=== PATIENT | female | born 1970 | race Caucasian/White ===

== ENCOUNTER 2016-09-12 00:25 | Emergency (ER) | payer OTHER ==
[2016-09-12] MEDS ORDERED: SODIUM CHLORIDE 0.9% 1,000 ML IV STA ×2 (01:07→02:15)
[2016-09-12] MEDS ORDERED: METOCLOPRAMIDE 5 MG/ML 2 ML VIAL IVP STA (01:07)
[2016-09-12] MEDS ORDERED: DICYCLOMINE 10 MG/ML 2 ML AMP IM STA (01:07)
--- NOTE | 2016-09-12 01:39 | ED ---
Nausea/Vomiting/Diarrhea HPI - General Chief complaint: Nausea/Vomiting/Diarrhea Stated complaint: nausea,vomiting Time Seen by Provider: 09/12/16 00:49 Source: patient, RN notes reviewed Mode of arrival: ambulatory - History of Present Illness Initial comments: 45 yo female presents to the ER with cc of nausea vomiting. Patient has had this since her procedure last Thursday. Patient states she is unable to keep anything down she just keeps throwing up. Patient states that she has any abdominal pain. Patient states she has generalized burning from the vomiting. Patient states went to Dr. farley she was given nausea medicine those do not help so she is here now. Patient states she just wants to feel better.Patient denies any recent fever, chills, shortness of breath, chest pain, back pain, abdominal pain, numbness or tingling, dysuria or hematuria, constipation or diarrhea, headaches or visual changes, or any other current symptoms. - Related Data Home Medications Medication Instructions Recorded Confirmed Ondansetron Odt [Zofran Odt] 4 mg PO Q8HR PRN 09/12/16 09/12/16 Prochlorperazine [Compazine] 5 mg PO Q4H 09/12/16 09/12/16 Previous Rx's Medication Instructions Recorded Ondansetron Odt [Zofran ODT] 4 mg PO Q8HR PRN #20 tab 09/12/16 Allergies Allergy/AdvReac Type Severity Reaction Status Date / Time codeine Allergy Nausea & Verified 09/12/16 00:38 Vomiting Review of Systems ROS Statement: Those systems with pertinent positive or pertinent negative responses have been documented in the HPI. ROS Other: All systems not noted in ROS Statement are negative. Past Medical History Past Medical History: No Reported History History of Any Multi-Drug Resistant Organisms: None Reported Additional Past Surgical History / Comment(s): carpal tunnel Past Psychological History: No Psychological Hx Reported Smoking Status: Current every day smoker Past Alcohol Use History: None Reported Past Drug Use History: None Reported General Exam - General Exam Comments Initial Comments: General: The patient is awake and alert, in no distress, and does not appear acutely ill. Eye: Pupils are equal, round and reactive to light, extra-ocular movements are intact; there is normal conjunctiva bilaterally. No signs of icterus. Ears, nose, mouth and throat: There are moist mucous membranes and no oral lesions. Neck: The neck is supple, there is no tenderness. Cardiovascular: There is a regular rate and rhythm. No murmur, rub or gallop is appreciated. Respiratory: Lungs are clear to auscultation, respirations are non-labored, breath sounds are equal. No wheezes, stridor, rales, or rhonchi. Gastrointestinal: Soft, non-distended, diffusely sore abdomen without masses or organomegaly noted. There is no rebound or guarding present. No CVA tenderness. Bowel sounds are unremarkable. Back: There is no tenderness to palpation in the midline. There is no obvious deformity. No rashes noted. Musculoskeletal: Normal ROM, no tenderness, There is no pedal edema. There is no calf tenderness or swelling. Sensation intact. Pulses equal bilaterally 2+. Neurological: CN II-XII intact, There are no obvious motor or sensory deficits. Coordination appears grossly intact. Speech is normal. Skin: Skin is warm and dry and no rashes or lesions are noted. Psychiatric: Cooperative, appropriate mood & affect, normal judgment. Course Vital Signs 09/12/16 09/12/16 09/12/16 00:32 01:39 03:26 Temperature 98.2 F 98.6 F 98.7 F Pulse Rate 111 H 98 65 Respiratory 20 16 16 Rate Blood Pressure 130/88 123/80 131/75 O2 Sat by Pulse 100 98 100 Oximetry Medical Decision Making - Medical Decision Making 45-year-old male presents emergency Department chief complaint of nausea and vomiting. At this time patient's lab work and imaging is reviewed. At this time and does not appear in acute process causing the patient's vomiting on CAT scan. Patient does appear to have some dehydration to give HER-2 liters of fluid. Patient's laboratory is reviewed and does appear to be negative. This time we discussed the different possible etiologies for her nausea vomiting. We discussed her temporalis and follow-up. We discussed all the patient's questions. She states she understood. This time she is negative and plantar discharged from outpatient follow-up. All her questions have been answered. - Lab Data Result diagrams: 09/12/16 01:15 09/12/16 01:15 Lab Results 09/12/16 09/12/16 09/12/16 Range/Units 01:15 01:15 03:08 WBC 9.6 (3.8-10.6) k/uL RBC 4.90 (3.80-5.40) m/uL Hgb 13.9 (11.4-16.0) gm/dL Hct 41.9 (34.0-46.0) % MCV 85.5 (80.0-100.0) fL MCH 28.3 (25.0-35.0) pg MCHC 33.1 (31.0-37.0) g/dL RDW 15.1 (11.5-15.5) % Plt Count 326 (150-450) k/uL Neutrophils % 76 % Lymphocytes % 13 % Monocytes % 6 % Eosinophils % 2 % Basophils % 1 % Neutrophils # 7.3 (1.3-7.7) k/uL Lymphocytes # 1.3 (1.0-4.8) k/uL Monocytes # 0.6 (0-1.0) k/uL Eosinophils # 0.2 (0-0.7) k/uL Basophils # 0.1 (0-0.2) k/uL Sodium 141 (137-145) mmol/L Potassium 4.1 (3.5-5.1) mmol/L Chloride 105 (98-107) mmol/L Carbon Dioxide 21 L (22-30) mmol/L Anion Gap 15 mmol/L BUN 22 H (7-17) mg/dL Creatinine 0.80 (0.52-1.04) mg/dL Est GFR (MDRD) Af Amer >60 (>60 ml/min/1.73 sqM) Est GFR (MDRD) Non-Af >60 (>60 ml/min/1.73 sqM) Glucose 121 H (74-99) mg/dL Calcium 11.3 H (8.4-10.2) mg/dL Total Bilirubin 0.5 (0.2-1.3) mg/dL AST 19 (14-36) U/L ALT 38 (9-52) U/L Alkaline Phosphatase 110 (38-126) U/L Total Protein 8.1 (6.3-8.2) g/dL Albumin 5.1 H (3.5-5.0) g/dL Amylase 50 (30-110) U/L Lipase 31 (23-300) U/L Urine Color Yellow Urine Appearance Clear (Clear) Urine pH 6.5 (5.0-8.0) Ur Specific Molino >1.050 H (1.001-1.035) Urine Protein 1+ H (Negative) Urine Glucose (UA) Negative (Negative) Urine Ketones 1+ H (Negative) Urine Blood Negative (Negative) Urine Nitrate Negative (Negative) Urine Bilirubin Negative (Negative) Urine Urobilinogen <2.0 (<2.0) mg/dL Ur Leukocyte Esterase Negative (Negative) Urine RBC 2 (0-5) /hpf Urine WBC <1 (0-5) /hpf Ur Squamous Epith Cells 3 (0-4) /hpf Urine Mucus Few H (None) /hpf Disposition Clinical Impression: Dehydration, Nausea and vomiting Disposition: HOME SELF-CARE Condition: Stable Instructions: Acute Nausea and Vomiting (ED) Additional Instructions: Please use medication as discussed. Please follow up with family doctor if symptoms have not improved over the next two days. Please return to the emergency room if your symptoms increase or worsen or for any other concerns. Prescriptions: Ondansetron Odt [Zofran ODT] 4 mg PO Q8HR PRN #20 tab PRN Reason: Nausea Referrals: Chirag Jose MD [Primary Care Provider] - 1-2 days Time of Disposition: 03:30
[2016-09-12 01:40] VITALS: RESP 16
[2016-09-12 01:41] LABS: Basophils # (A) 0.1 k/uL (0-0.2); Basophils % (A) 1 %; CH 28.2; Eosinophils # (A) 0.2 k/uL (0-0.7); Eosinophils % (A) 2 %; HCT 41.9 % (34.0-46.0); HDW 2.49; HGB 13.9 gm/dL (11.4-16.0); Luc # (Auto) 0.16; Luc % (Auto) 2; Lymphocytes # (A) 1.3 k/uL (1.0-4.8); Lymphocytes % (A) 13 %; MCH 28.3 pg (25.0-35.0); MCHC 33.1 g/dL (31.0-37.0); MCV 85.5 fL (80.0-100.0); Mean Platelet Volume 7.2; Monocytes # (A) 0.6 k/uL (0-1.0); Monocytes % (A) 6 %; Neutrophils # (A) 7.3 k/uL (1.3-7.7); Neutrophils % (A) 76 %; RDW 15.1 % (11.5-15.5); WBC 9.6 k/uL (3.8-10.6); WBC (Perox) 10.33
[2016-09-12 01:56] LABS: ALT 38 U/L (9-52); AST 19 U/L (14-36); Alkaline Phosphatase 110 U/L (38-126); Amylase 50 U/L (30-110); Anion Gap 15 mmol/L; Blood Urea Nitrogen 22 mg/dL (7-17); Calcium 11.3 mg/dL (8.4-10.2); Carbon Dioxide 21 mmol/L (22-30); Chloride 105 mmol/L (98-107); Glucose 121 mg/dL (74-99); Non-African American GFR(MDRD) >60 (>60 ml/min/1.73 sqM); Potassium 4.1 mmol/L (3.5-5.1); Sodium 141 mmol/L (137-145); Total Bilirubin 0.5 mg/dL (0.2-1.3); Total Protein 8.1 g/dL (6.3-8.2)
[2016-09-12] MEDS ORDERED: RX INFO: IV CONTRAST WAS GIVEN 1 EACH MISC MISCELLANE PRN (01:58)
--- NOTE | 2016-09-12 02:53 | CT ---
EXAMINATION TYPE: CT abdomen pelvis w con DATE OF EXAM: 09/12/2016 2:32 AM COMPARISON: NONE HISTORY: vomiting for 1 week abdominal pain history of appendectomy. CT DLP: 452.50 mGycm Automated exposure control for dose reduction was used. TECHNIQUE: Helical acquisition of images was performed from the lung bases through the pelvis. CONTRAST: Performed without Oral Contrast and with IV Contrast, patient injected with 100 mL of Omnipaque 300. FINDINGS: LUNG BASES: No significant abnormality is appreciated. LIVER/GB: No significant abnormality is appreciated. PANCREAS: Pancreas showed no significant surrounding inflammation. SPLEEN: No significant abnormality is seen. ADRENALS: No significant abnormality is seen. KIDNEYS: Multiple benign-appearing cystic lesions are noted in both kidneys without significant contr ast enhancement with one of the largest cysts measuring 1.7 cm in the axial image 26. The largest lef t renal cyst measures 1.7 cm in the axial image 23. REPRODUCTIVE ORGANS: Uterus appears grossly unremarkable. Prominent cystic changes are noted in the r ight ovary and mild cystic changes are noted in the left ovary. Largest cyst of right ovary measures approximately 2.7 cm in the axial image 66. No significant free fluid collections are noted in the ad nexal areas and pelvis. URINARY BLADDER: No significant abnormality is seen. PELVIC ADENOPATHY: None visualized. OSSEOUS STRUCTURES: No significant abnormality is seen. BOWEL: Appendix is probably surgically absent. Moderate colonic diverticulosis is noted especially involving descending and sigmoid colon without de finite evidence of acute diverticulitis at present. Stomach is not well distended. Small bowel loops showed mild fluid distention without significant bow el obstruction. ABDOMINAL WALL: Small fat-containing umbilical hernia is noted. IMPRESSION: 1. NO SIGNIFICANT ACUTE ABNORMALITY IS NOTED IN THE ABDOMEN AND PELVIS. 2. COLONIC DIVERTICULOSIS WITHOUT SIGNIFICANT ACUTE DIVERTICULITIS CHANGES AT PRESENT. 3. APPENDIX IS PROBABLY SURGICALLY ABSENT. 4. BENIGN-APPEARING CYSTIC CHANGES IN BOTH KIDNEYS. 5. VISUALIZED PANCREAS SHOWED NO SIGNIFICANT INFLAMMATION. 6. CYSTIC CHANGES IN BOTH OVARIES. A CLINICAL CORRELATION AND FOLLOW-UP IS RECOMMENDED.
[2016-09-12] MEDS ORDERED: ONDANSETRON 4 MG/2 ML VIAL IVP STA (03:08)
[2016-09-12 03:27] LABS: Appearance,Urine Clear (Clear); Bilirubin,Urine Negative (Negative); Glucose,Urine (UA) Negative (Negative); Ketones,Urine 1+ (Negative); Leukocyte Esterase,Urine Negative (Negative); Mucus,Urine Few /hpf; Nitrite,Urine Negative (Negative); PH, Urine 6.5 (5.0-8.0); Particle Count 3200; Protein,Urine 1+ (Negative); RBC,Urine 2 /hpf (0-5); Squamous Epithelial Cell,Urine 3 /hpf (0-4); UA Billing (MACRO vs. MICRO) MICRO; Urobilinogen,Urine <2.0 mg/dL (<2.0); WBC,Urine <1 /hpf (0-5)
[2016-09-12 03:28] VITALS: BP 131/75; PULSE 65; TEMP 98.7
[2016-09-12 03:29] LABS: Specific Gravity,Urine >1.050 (1.001-1.035)
== END 2016-09-12 04:00 | disposition home or self-care (01) ==
LOC: EC 00:25
DX: E86.0 Dehydration (principal); R11.2 Nausea with vomiting, unspecified; K57.30 Diverticulosis of large intestine without perforation or abscess without bleeding; F17.200 Nicotine dependence, unspecified, uncomplicated; Z88.5 Allergy status to narcotic agent; Z79.899 Other long term (current) drug therapy
CPT/HCPCS: 99284; 96372; 96374; 96375; 96361 ×2; 36415; 80053; 82150; 83690; 85025; 81001; 87040; 87086; 74177; J0500; J2765; J2405; Q9967

== ENCOUNTER 2016-09-14 11:15 | Observation (INO) | payer OTHER ==
[2016-09-14 11:41] VITALS: RESP 18
[2016-09-14] MEDS ORDERED: ONDANSETRON 4 MG/2 ML VIAL IVP STA ×2 (11:55→14:11)
[2016-09-14] MEDS ORDERED: SODIUM CHLORIDE 0.9% 1,000 ML IV STA (11:55)
[2016-09-14] MEDS ORDERED: SODIUM CHLORIDE 0.9% 500 ML IV STA (11:55)
--- NOTE | 2016-09-14 12:15 | ED ---
General Adult HPI - General Chief complaint: Abdominal Pain Stated complaint: VOMITING Time Seen by Provider: 09/14/16 11:42 Source: patient, RN notes reviewed, old records reviewed Mode of arrival: ambulatory Limitations: no limitations - History of Present Illness Initial comments: This is a 45-year-old female to the ER today complaining of abdominal pain, nausea, vomiting. They did recently have surgery for carpal tunnel, was done as outpatient surgery under sedation. Patient states since then she has not been feeling well. No travel history no sick contacts. No fevers. No new medication, patient has recently discontinued Neurontin. Patient with continued nausea vomiting weakness. She was here in the ER 3 days ago for similar symptoms, she states she has feel better when she went home but symptoms immediately returned later that night and has progressively worsened again. Decreased bowel movements, no diarrhea, no blood in her stool or vomit. - Related Data Home Medications Medication Instructions Recorded Confirmed No Known Home Medications [No 09/14/16 09/14/16 Known Home Medications] Allergies Allergy/AdvReac Type Severity Reaction Status Date / Time codeine Allergy Nausea & Verified 09/14/16 12:15 Vomiting Review of Systems ROS Statement: Those systems with pertinent positive or pertinent negative responses have been documented in the HPI. ROS Other: All systems not noted in ROS Statement are negative. Past Medical History Past Medical History: No Reported History Additional Past Medical History / Comment(s): carpal tunnel History of Any Multi-Drug Resistant Organisms: None Reported Additional Past Surgical History / Comment(s): carpal tunnel Past Psychological History: No Psychological Hx Reported Smoking Status: Current every day smoker Past Alcohol Use History: None Reported Past Drug Use History: None Reported General Exam Limitations: no limitations General appearance: alert, in no apparent distress Head exam: Present: atraumatic, normocephalic, normal inspection Eye exam: Present: normal appearance, PERRL, EOMI. Absent: scleral icterus, conjunctival injection, periorbital swelling ENT exam: Present: normal exam, mucous membranes moist Neck exam: Present: normal inspection. Absent: tenderness, meningismus, lymphadenopathy Respiratory exam: Present: normal lung sounds bilaterally. Absent: respiratory distress, wheezes, rales, rhonchi, stridor Cardiovascular Exam: Present: regular rate, normal rhythm, normal heart sounds. Absent: systolic murmur, diastolic murmur, rubs, gallop, clicks GI/Abdominal exam: Present: soft, normal bowel sounds. Absent: distended, tenderness, guarding, rebound, rigid Extremities exam: Present: normal inspection, full ROM, normal capillary refill. Absent: tenderness, pedal edema, joint swelling, calf tenderness Back exam: Present: normal inspection Neurological exam: Present: alert, oriented X3, CN II-XII intact Psychiatric exam: Present: normal affect, normal mood Skin exam: Present: warm, dry, intact, normal color. Absent: rash Course Vital Signs 09/14/16 11:37 Temperature 98.4 F Pulse Rate 86 Respiratory 18 Rate Blood Pressure 145/89 O2 Sat by Pulse 100 Oximetry - Reevaluation(s) Reevaluation #1: 09/14/16 14:12 The patient symptoms are not improving with symptomatic treatment 09/14/16 14:13 Patient is in no specific pain, no chest pain or shortness of breath Medical Decision Making - Medical Decision Making 45 female here with persistent nausea vomiting. Intractable nausea and vomiting. Patient unable to tolerate by mouth at this time. Patient will be admitted for IV resuscitation calories, symptomatic treatment. - Lab Data Result diagrams: 09/14/16 12:30 09/14/16 12:30 Lab Results 09/14/16 09/14/16 09/14/16 Range/Units 12:30 12:30 12:30 WBC 7.9 (3.8-10.6) k/uL RBC 4.68 (3.80-5.40) m/uL Hgb 13.2 (11.4-16.0) gm/dL Hct 41.1 (34.0-46.0) % MCV 87.9 (80.0-100.0) fL MCH 28.2 (25.0-35.0) pg MCHC 32.0 (31.0-37.0) g/dL RDW 15.4 (11.5-15.5) % Plt Count 322 (150-450) k/uL Neutrophils % 68 % Lymphocytes % 20 % Monocytes % 8 % Eosinophils % 2 % Basophils % 1 % Neutrophils # 5.4 (1.3-7.7) k/uL Lymphocytes # 1.6 (1.0-4.8) k/uL Monocytes # 0.6 (0-1.0) k/uL Eosinophils # 0.2 (0-0.7) k/uL Basophils # 0.1 (0-0.2) k/uL Sodium 144 (137-145) mmol/L Potassium 3.7 (3.5-5.1) mmol/L Chloride 106 (98-107) mmol/L Carbon Dioxide 24 (22-30) mmol/L Anion Gap 14 mmol/L BUN 17 (7-17) mg/dL Creatinine 0.80 (0.52-1.04) mg/dL Est GFR (MDRD) Af Amer >60 (>60 ml/min/1.73 sqM) Est GFR (MDRD) Non-Af >60 (>60 ml/min/1.73 sqM) Glucose 101 H (74-99) mg/dL Plasma Lactic Acid Sanjay (0.7-2.0) mmol/L Calcium 11.0 H (8.4-10.2) mg/dL Phosphorus 2.8 (2.5-4.5) mg/dL Magnesium 2.1 (1.6-2.3) mg/dL Total Bilirubin 0.4 (0.2-1.3) mg/dL AST 23 (14-36) U/L ALT 40 (9-52) U/L Alkaline Phosphatase 106 (38-126) U/L Total Creatine Kinase 39 (30-135) U/L CK-MB (CK-2) <0.2 (0.0-2.4) ng/mL CK-MB (CK-2) Rel Index Troponin I <0.012 (0.000-0.034) ng/mL Total Protein 7.8 (6.3-8.2) g/dL Albumin 4.8 (3.5-5.0) g/dL Urine Color Urine Appearance (Clear) Urine pH (5.0-8.0) Ur Specific Stephan (1.001-1.035) Urine Protein (Negative) Urine Glucose (UA) (Negative) Urine Ketones (Negative) Urine Blood (Negative) Urine Nitrate (Negative) Urine Bilirubin (Negative) Urine Urobilinogen (<2.0) mg/dL Ur Leukocyte Esterase (Negative) Urine RBC (0-5) /hpf Urine WBC (0-5) /hpf Ur Squamous Epith Cells (0-4) /hpf Urine Bacteria (None) /hpf Urine Mucus (None) /hpf 09/14/16 09/14/16 Range/Units 12:30 12:35 WBC (3.8-10.6) k/uL RBC (3.80-5.40) m/uL Hgb (11.4-16.0) gm/dL Hct (34.0-46.0) % MCV (80.0-100.0) fL MCH (25.0-35.0) pg MCHC (31.0-37.0) g/dL RDW (11.5-15.5) % Plt Count (150-450) k/uL Neutrophils % % Lymphocytes % % Monocytes % % Eosinophils % % Basophils % % Neutrophils # (1.3-7.7) k/uL Lymphocytes # (1.0-4.8) k/uL Monocytes # (0-1.0) k/uL Eosinophils # (0-0.7) k/uL Basophils # (0-0.2) k/uL Sodium (137-145) mmol/L Potassium (3.5-5.1) mmol/L Chloride (98-107) mmol/L Carbon Dioxide (22-30) mmol/L Anion Gap mmol/L BUN (7-17) mg/dL Creatinine (0.52-1.04) mg/dL Est GFR (MDRD) Af Amer (>60 ml/min/1.73 sqM) Est GFR (MDRD) Non-Af (>60 ml/min/1.73 sqM) Glucose (74-99) mg/dL Plasma Lactic Acid Sanjay 1.0 (0.7-2.0) mmol/L Calcium (8.4-10.2) mg/dL Phosphorus (2.5-4.5) mg/dL Magnesium (1.6-2.3) mg/dL Total Bilirubin (0.2-1.3) mg/dL AST (14-36) U/L ALT (9-52) U/L Alkaline Phosphatase (38-126) U/L Total Creatine Kinase (30-135) U/L CK-MB (CK-2) (0.0-2.4) ng/mL CK-MB (CK-2) Rel Index Troponin I (0.000-0.034) ng/mL Total Protein (6.3-8.2) g/dL Albumin (3.5-5.0) g/dL Urine Color Yellow Urine Appearance Cloudy H (Clear) Urine pH 6.0 (5.0-8.0) Ur Specific Stephan 1.021 (1.001-1.035) Urine Protein 1+ H (Negative) Urine Glucose (UA) Negative (Negative) Urine Ketones 2+ H (Negative) Urine Blood Negative (Negative) Urine Nitrate Negative (Negative) Urine Bilirubin Negative (Negative) Urine Urobilinogen 2.0 (<2.0) mg/dL Ur Leukocyte Esterase Negative (Negative) Urine RBC 2 (0-5) /hpf Urine WBC 5 (0-5) /hpf Ur Squamous Epith Cells 3 (0-4) /hpf Urine Bacteria Rare H (None) /hpf Urine Mucus Many H (None) /hpf Disposition Clinical Impression: Dehydration, Nausea and vomiting, Failure of outpatient treatment, Intractable nausea and vomiting Disposition: ADMITTED IP TO THIS [facility] Condition: Good Referrals: Chirag Jose MD [Primary Care Provider] - 1-2 days
[2016-09-14 12:45] LABS: Basophils # (A) 0.1 k/uL (0-0.2); Basophils % (A) 1 %; CH 28.9; CHCM 32.9; Eosinophils # (A) 0.2 k/uL (0-0.7); Eosinophils % (A) 2 %; HCT 41.1 % (34.0-46.0); HDW 2.45; HGB 13.2 gm/dL (11.4-16.0); Luc % (Auto) 1; Lymphocytes # (A) 1.6 k/uL (1.0-4.8); Lymphocytes % (A) 20 %; MCH 28.2 pg (25.0-35.0); MCV 87.9 fL (80.0-100.0); Mean Platelet Volume 7.7; Monocytes # (A) 0.6 k/uL (0-1.0); Monocytes % (A) 8 %; Neutrophils # (A) 5.4 k/uL (1.3-7.7); Neutrophils % (A) 68 %; RBC 4.68 m/uL (3.80-5.40); RDW 15.4 % (11.5-15.5); WBC 7.9 k/uL (3.8-10.6); WBC (Perox) 8.22
[2016-09-14 12:49] LABS: Appearance,Urine Cloudy (Clear); Bacteria,Urine Rare /hpf; Bilirubin,Urine Negative (Negative); Glucose,Urine (UA) Negative (Negative); Ketones,Urine 2+ (Negative); Leukocyte Esterase,Urine Negative (Negative); Mucus,Urine Many /hpf; Nitrite,Urine Negative (Negative); Particle Count 20536; Protein,Urine 1+ (Negative); RBC,Urine 2 /hpf (0-5); Specific Gravity,Urine 1.021 (1.001-1.035); Squamous Epithelial Cell,Urine 3 /hpf (0-4); UA Billing (MACRO vs. MICRO) MICRO; WBC,Urine 5 /hpf (0-5)
[2016-09-14 12:56] LABS: ALT 40 U/L (9-52); AST 23 U/L (14-36); Alkaline Phosphatase 106 U/L (38-126); Anion Gap 14 mmol/L; Blood Urea Nitrogen 17 mg/dL (7-17); Carbon Dioxide 24 mmol/L (22-30); Chloride 106 mmol/L (98-107); Glucose 101 mg/dL (74-99); Magnesium 2.1 mg/dL (1.6-2.3); Non-African American GFR(MDRD) >60 (>60 ml/min/1.73 sqM); Phosphorous 2.8 mg/dL (2.5-4.5); Potassium 3.7 mmol/L (3.5-5.1); Sodium 144 mmol/L (137-145); Total Bilirubin 0.4 mg/dL (0.2-1.3); Total Protein 7.8 g/dL (6.3-8.2)
[2016-09-14 13:10] LABS: Creatine Kinase 39 U/L (30-135)
[2016-09-14 13:23] LABS: Creatine Kinase MB <0.2 ng/mL (0.0-2.4); Troponin I <0.012 ng/mL (0.000-0.034)
[2016-09-14] MEDS ORDERED: METOCLOPRAMIDE 5 MG/ML 2 ML VIAL IVP STA (13:42)
[2016-09-14] MEDS ORDERED: diphenhydrAMINE 50 MG/ML 1 ML VIAL IVP STA (13:42)
[2016-09-14] MEDS ORDERED: DIAZEPAM 5 MG/ML 2 ML SYRINGE IVP STA (13:42)
[2016-09-14] MEDS ORDERED: PANTOPRAZOLE 40 MG/10 ML VIAL IVP STA (13:42)
[2016-09-14] MEDS ORDERED: MORPHINE SULFATE 4 MG/ML SYRINGE IVP STA (14:11)
[2016-09-14] MEDS ORDERED: DICYCLOMINE 10 MG/ML 2 ML AMP IM STA (14:11)
[2016-09-14] MEDS ORDERED: MORPHINE SULFATE 4 MG/ML SYRINGE IVP PRN (14:14)
[2016-09-14] MEDS ORDERED: diphenhydrAMINE 50 MG/ML 1 ML VIAL IVP PRN (14:14)
[2016-09-14] MEDS ORDERED: ONDANSETRON 4 MG/2 ML VIAL IVP PRN (14:14)
[2016-09-14] MEDS ORDERED: METOCLOPRAMIDE 5 MG/ML 2 ML VIAL IVP PRN (14:14)
[2016-09-14] MEDS ORDERED: DEXTROSE 5%-0.45% NACL 1,000 ML IV ONE (14:14)
[2016-09-14 15:00] VITALS: BP 130/60; PULSE 56; TEMP 98.4
[2016-09-14] MEDS ORDERED: SODIUM CHLORIDE 0.9% 1,000 ML IV SCH (15:15)
[2016-09-14 15:42] VITALS: BMI 25.7
[2016-09-14] MEDS ORDERED: PANTOPRAZOLE 40 MG/10 ML VIAL IVP SCH (21:00)
[2016-09-15] MEDS ORDERED: PANTOPRAZOLE 40 MG/10 ML VIAL IVP SCH (09:00)
--- NOTE | 2016-09-15 10:25 | HP ---
HISTORY AND PHYSICAL/DISCHARGE SUMMARY DATE OF ADMISSION: This is a 45-year-old female who came in with complaints of nausea, vomiting, has been going on for a week, multiple episodes of vomiting. Denied any diarrhea. Was complaining of epigastric abdominal pain, although patient is not having any significant ulcerative abnormalities. All the ( ) with normal limits. Patient's creatinine and BUN are within normal limits and patient denied any recently ill contact. Patient since arrival to observation unit for a couple hours, did not have any nausea. Will try and advance diet. Will start her on ( ) and advance her to sulfate, if she is able to tolerate, will discharge her today with Prilosec and antiviral medications and Zofran on as-needed basis. Patient denied any fever, chills. Patient denied any flu-like symptoms. REVIEW OF SYSTEMS: CONSTITUTIONAL: No fever, no malaise, no fatigue. HEENT: No recent visual problems or hearing problems. Denied any sore throat. CARDIOVASCULAR: No chest pain, orthopnea, PND, no palpitations, no syncope. PULMONARY: No shortness of breath, no cough, no hemoptysis. GASTROINTESTINAL: As described in HPI. NEUROLOGICAL: No headaches, no weakness, no numbness. HEMATOLOGICAL: Denies any bleeding or petechiae. GENITOURINARY: Denies any burning micturition, frequency, or urgency. MUSCULOSKELETAL/RHEUMATOLOGICAL: Denies any joint pain, swelling, or any muscle pain. ENDOCRINE: Denies any polyuria or polydipsia. The rest of the 14 point review of systems is negative. HOME MEDICATIONS: None. ALLERGIES: Allergic to CODEINE. PAST MEDICAL HISTORY: Carpal tunnel surgery. Patient had a recent carpal tunnel surgery. Since then she is having ( ). Patient is not on an antibiotics recently. SOCIAL HISTORY: Patient continues to smoke. Denied any alcohol abuse or any drug abuse. FAMILY HISTORY: Denied any family history of diabetes mellitus. PHYSICAL EXAMINATION: Temperature 98.4, pulse of 86, respiratory rate of 18, blood pressure is 145/89, saturating at 100% on room air. GENERAL: The patient is alert and oriented x3, not in any acute distress. Well developed, well nourished. HEENT: Pupils are round and equally reacting to light. EOMI. No scleral icterus. No conjunctival pallor. Normocephalic, atraumatic. No pharyngeal erythema. No thyromegaly. CARDIOVASCULAR: S1 and S2 present. No murmurs, rubs, or gallops. PULMONARY: Chest is clear to auscultation, no wheezing or crackles. ABDOMEN: Soft, nontender, nondistended, normoactive bowel sounds. No palpable organomegaly. MUSCULOSKELETAL: No joint swelling or deformity. EXTREMITIES: No cyanosis, clubbing, or pedal edema. NEUROLOGICAL: Gross neurological examination did not reveal any focal deficits. SKIN: No rashes. Laboratory data as mentioned above. CBC is within normal limits. Troponins, UA are all within normal limits. ASSESSMENT AND PLAN: 1. Nausea and vomiting ( ). Since she was admitted, will watch her and ( ). If she is not having significant nausea and vomiting, patient will be discharged and further management as mentioned in the interval history. Patient probably has gastritis or gastroenteritis. 2. ( ) was provided. 3. Patient probably has gastritis for which patient will start on Protonix. I will discharge her on Prilosec, opiates will be discontinued as patient does not have any significant pain at this time.
== END 2016-09-14 19:23 | disposition home or self-care (01) ==
LOC: EC 11:15 → 3OBS 14:14
PROVIDERS: ADMIT Hospitalist; ATTEND Hospitalist
DX: E86.0 Dehydration (principal); R11.2 Nausea with vomiting, unspecified; R10.9 Unspecified abdominal pain; F17.200 Nicotine dependence, unspecified, uncomplicated; Z88.5 Allergy status to narcotic agent
CPT/HCPCS: 99284; 96374; 96375 ×4; 96372; 96361 ×2; 36415; 80053; 82550; 82553; 83605; 83735; 84100; 84484; 85025; 81001; 87086; G0378; J1200; J0500; J2765; J3360; J2405; C9113

== ENCOUNTER → 2016-09-30 | Outpatient (CLI) | payer OTHER ==
--- NOTE | 2016-09-30 09:24 | NM ---
Nuclear medicine hepatobiliary scan. HISTORY: Pain. COMPARISON: 10/10/2014 The patient received 8 ounces of oral ensure plus and 5.4 mCi of Technetium 99m Choletec. There is normal hepatic extraction. The gallbladder is seen by 20 minutes. There is biliary to wanda l clearance by 30 minutes. Ejection fraction is 66%. IMPRESSION: 1. Normal hepatobiliary exam
== END | disposition home or self-care (01) ==
LOC: RADNMMAIN 07:02
PROVIDERS: ATTEND Family Medicine
DX: R10.9 Unspecified abdominal pain (principal)
CPT/HCPCS: 78226; A9537

== ENCOUNTER → 2018-01-19 | Outpatient (CLI) | payer BC ==
--- NOTE | 2018-01-19 15:06 | MM ---
Reason for exam: additional evaluation requested from prior study. Last mammogram was performed 1 year and 9 months ago. History: Took hormonal contraceptives for 5 years. Physical Findings: Nurse did not find any significant physical abnormalities on exam. MG 3D Diag Mammo W/Cad NAVARRO Bilateral CC and MLO view(s) were taken. Prior study comparison: April 21, 2016, right breast MG work up mamm w CAD RT. April 10, 2016, bilateral MG screening mammo w CAD. The breast tissue is heterogeneously dense. This may lower the sensitivity of mammography. No significant new findings when compared with previous films. These results were verbally communicated with the patient and result sheet given to the patient on 01/19/18. ASSESSMENT: Negative, BI-RAD 1 RECOMMENDATION: Routine screening mammogram of both breasts in 1 year.
== END | disposition home or self-care (01) ==
LOC: RADMAMWWP 14:21
PROVIDERS: ATTEND Family Medicine
DX: R92.8 Other abnormal and inconclusive findings on diagnostic imaging of breast (principal)
CPT/HCPCS: 77062; 77066

== ENCOUNTER → 2018-01-21 | Outpatient (CLI) | payer BC ==
[2018-01-21 13:03] LABS: ALT 30 U/L (9-52); AST 17 U/L (14-36); Albumin 4.1 g/dL (3.5-5.0); Alkaline Phosphatase 75 U/L (38-126); Anion Gap 11 mmol/L; Blood Urea Nitrogen 14 mg/dL (7-17); Calcium 9.9 mg/dL (8.4-10.2); Carbon Dioxide 24 mmol/L (22-30); Chloride 108 mmol/L (98-107); Glucose 94 mg/dL (74-99); Potassium 4.5 mmol/L (3.5-5.1); Sodium 143 mmol/L (137-145); Total Bilirubin 0.1 mg/dL (0.2-1.3); Total Protein 6.2 g/dL (6.3-8.2)
[2018-01-21 13:09] LABS: HCT 37.8 % (34.0-46.0); HGB 12.8 gm/dL (11.4-16.0); MCH 30.1 pg (25.0-35.0); MCHC 33.8 g/dL (31.0-37.0); MCV 89.2 fL (80.0-100.0); Mean Platelet Volume 6.9; Platelet Count 280 k/uL (150-450); RBC 4.23 m/uL (3.80-5.40); RDW 13.4 % (11.5-15.5); WBC 7.2 k/uL (3.8-10.6)
[2018-01-21 13:20] LABS: Partial Thromboplastin Time 24.4 sec (22.0-30.0); Prothrombin Time 9.5 sec (9.0-12.0)
== END ==
LOC: LABWHC1 12:01
PROVIDERS: ATTEND Plastic Surgery
DX: D64.9 Anemia, unspecified (principal); D68.9 Coagulation defect, unspecified; E87.8 Other disorders of electrolyte and fluid balance, not elsewhere classified
CPT/HCPCS: 36415; 80053; 85027; 85610; 85730

== ENCOUNTER → 2018-10-29 | Outpatient (CLI) | payer OTHER, BC ==
--- NOTE | 2018-10-29 11:44 | US ---
EXAMINATION TYPE: US venous doppler duplex LE RT DATE OF EXAM: 10/29/2018 11:34 AM COMPARISON: NONE CLINICAL HISTORY: R22.42 Swelling of lower limb. Pain and edema right leg SIDE PERFORMED: right TECHNIQUE: The lower extremity deep venous system is examined utilizing real time linear array sonog jose with graded compression, doppler sonography and color-flow sonography. VESSELS IMAGED: External Iliac Vein (EIV) Common Femoral Vein Deep Femoral Vein Greater Saphenous Vein * Femoral Vein Popliteal Vein Small Saphenous Vein * Proximal Calf Veins (* superficial vessels) Right Leg: No evidence of DVT IMPRESSION: 1. Right lower extremity ultrasound negative for deep venous thrombosis.
== END | disposition home or self-care (01) ==
LOC: RADUSWWP 10:56
PROVIDERS: ATTEND Family Medicine
DX: R22.42 Localized swelling, mass and lump, left lower limb (principal)

== ENCOUNTER → 2019-03-02 | Outpatient (CLI) | payer BC, OTHER ==
--- NOTE | 2019-03-03 11:34 | USB ---
Reason for exam: clinical finding. History: Retro-pectoral silicone gel implants in both breasts, 2018. Took hormonal contraceptives for 5 years. Indicated problem(s): palpable abnormality and lump or thickening in the left breast. Physical Findings: Nurse Summary: 1cm movable nodule at 10 o'clock (nurse dw). US Breast LT Left complete breast ultrasound includes all four quadrants, the retroareolar region and axilla. Finding demonstrates a 0.9 x 0.9 x 0.2cm cystic lesion at 9 o'clock, a 1.1 x 0.7 x 0.3cm cystic lesion at 10 o'clock and a 6 x 4mm hypoechoic intraductal lesion with vascularity at 10 o'clock subareolar region. These results were verbally communicated with the patient and result sheet given to the patient on 03/02/19. ASSESSMENT: Incomplete: need additional imaging evaluation, BI-RAD 0 RECOMMENDATION: Special view mammogram of both breasts.
--- NOTE | 2019-03-03 11:36 | MM ---
Reason for exam: additional evaluation requested from abnormal screening. Last mammogram was performed 1 year and 1 month ago. History: Retro-pectoral silicone gel implants in both breasts, 2018. Took hormonal contraceptives for 5 years. MG 3D Diag Mammo Imp W/Cad NAVARRO Bilateral CC, MLO, and ID view(s) were taken. Prior study comparison: January 19, 2018, bilateral MG 3d diag mammo w/cad NAVARRO. April 21, 2016, right breast MG work up mamm w CAD RT. The breast tissue is extremely dense which could obscure a lesion on mammography. Bilateral nipple bars. Retropectoral silicone implants. No suspicious calcifications are seen. No significant new findings when compared with previous films. These results were verbally communicated with the patient and result sheet given to the patient on 03/02/19. ASSESSMENT: Suspicious, BI-RAD 4 RECOMMENDATION: Ultrasound core biopsy of the left breast. Called Dr. Bright with mammographic findings and has scheduled an appointment for the patient for 03/25/19 at 12:[address] Shirley. Biopsy scheduled for 03/30/19 at 1:00. PRELIMINARY REPORT CALLED AND FAXED TO DR. SHIRLEY ON 03/02/19.
== END | disposition home or self-care (01) ==
LOC: RADUSWWP 15:39
PROVIDERS: ATTEND Internal Medicine
DX: N63.42 Unspecified lump in left breast, subareolar (principal)
CPT/HCPCS: 77062; 77066

== ENCOUNTER → 2022-11-20 | Outpatient (CLI) | payer BC ==
--- NOTE | 2022-11-21 07:06 | US ---
EXAMINATION TYPE: US pelvis complete transvag DATE OF EXAM: 11/20/2022 COMPARISON: Pelvic ultrasound 10/12/2015 CLINICAL HISTORY: N83.209 OVARIAN CYST. TECHNIQUE: Transvaginal (TV) and Transabdominal (TA) . Date of LMP: 1 year prior EXAM MEASUREMENTS: Uterus: 6.6 x 2.7 x 3.6 cm Endometrial Stripe: 0.6 cm Right Ovary: 2.1 x 1.1 x 1.2 cm Left Ovary: 1.9 x 1.6 x 1.7cm 1. Uterus: Anteverted wnl 2. Endometrium: wnl 3. Right Ovary: wnl 4. Left Ovary: 1.1cm cyst 5. Bilateral Adnexa: wnl 6. Posterior cul-de-sac: wnl Unremarkable appearance of the intervertebral uterus. Endometrium is within normal limits. Right ovar y is within normal limits. Left ovarian dominant follicular cyst measuring 1.1 cm. No free fluid iden tified. IMPRESSION: 1. No acute pelvic process. 2. Left ovarian follicular cyst.
== END | disposition home or self-care (01) ==
LOC: RADUSWWP 16:21
PROVIDERS: ATTEND Family Medicine
DX: N83.02 Follicular cyst of left ovary (principal)
CPT/HCPCS: 76830; 76856

== ENCOUNTER → 2023-10-05 | Outpatient (CLI) | payer BC ==
--- NOTE | 2023-10-06 20:43 | MM ---
Reason for Exam: Screening (asymptomatic). Last mammogram was performed 4 year(s) and 7 month(s) ago. Patient History: Menarche at age 12. First Full-Term at age 20. Postmenopausal. Patient used Hormonal Contraceptives for 5 years. 2018, Bilateral Implants. Risk Values: Aretha 5 year model risk: 0.8%. NCI Lifetime model risk: 7.0%. Prior Study Comparison: 04/21/2016 Right Diagnostic Mammogram, [facility]. 01/19/2018 Bilateral Diagnostic Mammogram, [facility]. 03/02/2019 Bilateral Diagnostic Mammogram, [facility]. Tissue Density: The breast tissue is extremely dense which could obscure a lesion on mammography. Findings: Analyzed By CAD. There are bilateral retropectoral silicone implants. Bilateral nipple bar is also noted. Possible small area of underlying nodularity upper outer quadrant right breast for which further evaluation is recommended. Otherwise, no significant change. Overall Assessment: Incomplete: need additional imaging evaluation, BI-RAD 0 Management: Special View Mammogram of the right breast. Diagnostic Breast Ultrasound of the right breast. [facility] will attempt to contact patient to return for supplemental views and ultrasound if indicated. Electronically signed and approved by: Silvestre Roca M.D. Radiologist
== END | disposition home or self-care (01) ==
LOC: RADMAMWWP 15:19
PROVIDERS: ATTEND Family Medicine
DX: Z12.31 Encounter for screening mammogram for malignant neoplasm of breast (principal); Z78.0 Asymptomatic menopausal state; Z98.82 Breast implant status
CPT/HCPCS: 77063; 77067

== ENCOUNTER → 2023-10-08 | Outpatient (CLI) | payer BC ==
--- NOTE | 2023-10-08 14:18 | MM ---
Reason for Exam: Additional evaluation requested from abnormal screening. Last screening mammogram was performed less than 1 month ago. Patient History: Menarche at age 12. First Full-Term at age 20. Postmenopausal. Patient used Hormonal Contraceptives for 5 years. 2018, Bilateral Implants. Risk Values: Aretha 5 year model risk: 0.8%. NCI Lifetime model risk: 7.0%. Prior Study Comparison: 03/02/2019 Left Diagnostic Ultrasound, [facility]. 03/02/2019 Bilateral Diagnostic Mammogram, [facility]. 10/05/2023 Bilateral MG 3D screen mammo imp/cad., [facility]. Tissue Density: Right: The breast tissue is extremely dense which could obscure a lesion on mammography. Findings: Analyzed By CAD. Possible 3 mm nodularity, approximately 10:00 position posterior depth right breast seen on the true lateral view. The questioned area of nodularity does not persist on either 3-D CC or spot 3-D MLO views. Further ultrasound evaluation recommended. Overall Assessment: Incomplete: need additional imaging evaluation, BI-RAD 0 Management: Diagnostic Breast Ultrasound of the right breast. Upper outer quadrant. Electronically signed and approved by: Silvestre Roca M.D. Radiologist
--- NOTE | 2023-10-08 14:52 | USB ---
Reason for Exam: Additional evaluation requested from abnormal screening. Patient History: Menarche at age 12. First Full-Term at age 20. Postmenopausal. Patient used Hormonal Contraceptives for 5 years. 2018, Bilateral Implants. Risk Values: Aretha 5 year model risk: 0.8%. NCI Lifetime model risk: 7.0%. Technique: Method: Targeted. Prior Study Comparison: 01/19/2018 Bilateral Diagnostic Mammogram, [facility]. 03/02/2019 Bilateral Diagnostic Mammogram, [facility]. 10/05/2023 Bilateral MG 3D screen mammo imp/cad., [facility]. Findings: The upper outer quadrant of the right breast, the axilla of the right breast and the retroareolar of the right breast were scanned. Targeted ultrasound right breast upper outer quadrant 9:00 to 12:00 including scanning of the subareolar region and axilla. Underlying breast implant is noted. At the 9:00 position, 4 cm from the nipple, there is an oval, circumscribed 10 x 9 x 3 mm heterogeneous hypoechoic lesion, probable cyst cluster that can be reassessed at follow-up. At the 10:00 position, 4 cm from the nipple, small 4 x 3 x 2 mm probable cyst cluster noted. Possible mammographic correlate. This can also be reassessed at the patient's follow-up. No other solid or cystic lesion or axillary lymphadenopathy. Overall Assessment: Probably benign, BI-RAD 3 Management: Diagnostic Breast Ultrasound of the right breast in 6 months. A clinical breast exam by your physician is recommended on an annual basis and results should be correlated with mammographic findings. This exam should not preclude additional follow-up of suspicious palpable abnormalities. Results were given to the patient verbally at the time of exam. Electronically signed and approved by: Silvestre Roca M.D. Radiologist
== END | disposition home or self-care (01) ==
LOC: RADMAMWWP 13:50
PROVIDERS: ATTEND Family Medicine
DX: R92.8 Other abnormal and inconclusive findings on diagnostic imaging of breast (principal); Z78.0 Asymptomatic menopausal state
CPT/HCPCS: 77061; 77065

== ENCOUNTER 2023-11-25 08:56 | Day surgery (SDC) | payer BC ==
[2023-11-25] MEDS: LACTATED RINGERS 1,000 ML IV ONE ×2 (09:41→09:48)
[2023-11-25] MEDS ORDERED: PROPOFOL 10 MG/ML 20 ML VIAL IV ONE (09:51)
[2023-11-25] MEDS ORDERED: LIDOCAINE 1% INJ 10MG/ML (20 ML MDV) ONE (09:51)
--- NOTE | 2023-11-25 10:16 | P.PCN ---
Date of Procedure: 11/25/23 Procedure(s) Performed: Brief history: Patient is a pleasant 53-year-old white female scheduled for an elective upper endoscopy as well as colonoscopy as a part of evaluation of abdominal pain/intermittent nausea vomiting and screening for colon cancer Procedure performed: Esophagogastroduodenoscopy with biopsy Colonoscopy with biopsy Preoperative diagnosis: Epigastric pain/intermittent nausea vomiting Screening for colon cancer Anesthesia: MAC Procedure: After informed consent was obtained from the patient was brought into the endoscopy unit and IV sedation was administered by anesthesia under continuous monitoring. Initially upper endoscopy was done. The Olympus GF 160 video endoscope was inserted inserted into the mouth and esophagus intubated without any difficulty and was gradually advanced into the stomach and duodenum and carefully examined. The bulb and second part of the duodenum appeared normal. Abscesses were done from the duodenum to rule out celiac disease. The scope was then withdrawn into the stomach adequately insufflated with air and upon careful examination the antrum had mild gastritis and biopsies were done from this area. Mucosa of the body, cardia and fundus appeared normal. The scope was then withdrawn into the esophagus. The GE junction was located at 40 cm to the incisors. It appeared regular with no erythema erosions or ulcerations. Rest of the esophagus appeared normal. Patient tolerated the procedure well. At this time the patient continued to remain sedation. Initial digital rectal examination was normal. Olympus CF 160 video colonoscope was then inserted into the rectum and gradually advanced to the cecum without any difficulty. Careful examination was performed as the scope was gradually being withdrawn. The prep was excellent. The cecum, ascending colon, transverse colon, descending colon, sigmoid colon and rectum appeared normal. In the proximal rectum there was a 5 mm polyp that was removed by cold biopsy Retroflexion was performed in the rectum and no lesions were noted. Patient tolerated the procedure well. Impression: 1. Upper endoscopy revealed mild antral gastritis but no evidence of esophagitis or peptic ulcer 2. Colonoscopy revealed 5 mm proximal rectal polyp status post cold biopsy and the rest of the colon appeared normal Recommendations: Findings of this examination were discussed with the patient as well as her family. She was advised to follow with the biopsy results. Continue with Pepci d 20 mg twice daily and follow antireflux measures. If the biopsy the colon polyp reveals adenoma she can have a repeat colonoscopy in 5 years
[2023-11-25 10:21] VITALS: TEMP 97
[2023-11-25] MEDS ORDERED: KETOROLAC 15 MG/ML 1 ML VIAL ONE (10:51)
[2023-11-25] MEDS: KETOROLAC 15 MG/ML 1 ML VIAL IVP ONE (10:52)
[2023-11-25 11:02] VITALS: BP 139/80; PULSE 72; RESP 16
== END 2023-11-25 11:54 | disposition home or self-care (01) ==
LOC: ORWHC2ENDO 08:56
PROVIDERS: ATTEND Internal Medicine Gastroenterology
DX: Z12.11 Encounter for screening for malignant neoplasm of colon (principal); K21.00 Gastro-esophageal reflux disease with esophagitis, without bleeding; K31.9 Disease of stomach and duodenum, unspecified; K29.50 Unspecified chronic gastritis without bleeding; K62.1 Rectal polyp; E11.9 Type 2 diabetes mellitus without complications; F17.290 Nicotine dependence, other tobacco product, uncomplicated; Z86.73 Personal history of transient ischemic attack (TIA), and cerebral infarction without residual deficits; Z88.5 Allergy status to narcotic agent; Z90.49 Acquired absence of other specified parts of digestive tract; Z79.899 Other long term (current) drug therapy
CPT/HCPCS: 81025; 88305; 45380; 43239; J2001; J1885; J2704

== ENCOUNTER → 2024-06-14 | Outpatient (CLI) | payer BC ==
--- NOTE | 2024-06-14 19:19 | US ---
EXAMINATION TYPE: US thyroid st tissue head/neck DATE OF EXAM: 06/14/2024 COMPARISON: NONE CLINICAL INDICATION: Female, 53 years old with history of R42 DIZZY GIDDY I88.9 NONSPECIFIC LYMPHADEN ITIS; Lump posterior right neck x ???; Felling unwell/vertigo x months TECHNIQUE: Grayscale and color Doppler imaging of the thyroid gland. FINDINGS: GLAND SIZE: Right Lobe: 4.0 x 1.2 x 1.6 cm Overall Parenchyma: homogeneous Left Lobe: 3.8 x 0.9 x 1.3 cm Overall Parenchyma: homogeneous Isthmus Thickness: NA cm NODULES RIGHT: # of nodules measured on right: 0 LEFT: # of nodules measured on left: 0 ISTHMUS: # of nodules measured in the isthmus: 0 Bilateral neck scanned Lymph node seen at patients AOC at right posterior neck = 1.2 x 0.4 x 1.3 cm . Demonstrates reniform shape with central fatty hilum. No increased internal color flow. Multiple lymph nodes seen right lateral neck, largest = 2.2 x 0.9 x 1.0 cm . Demonstrates ovoid morph ology. Multiple lymph nodes seen left lateral neck, largest = 2.0 x 1.3 x 3.3 cm with echogenic area in latisha ex = 0.5 x 0.3 x 0.4 cm . No shadowing demonstrated. IMPRESSION: 1. Several enlarged lymph nodes within the neck with a left lateral neck submandibular lymph node de monstrating a nonspecific echogenic region. May be reactive versus other etiologies. Further evaluati on with CT neck with IV contrast is recommended. 2. No discrete thyroid nodules. [facility], , 06/14/2024 7:17 PM
== END | disposition home or self-care (01) ==
LOC: RADUSWWP 15:40
PROVIDERS: ATTEND Family Medicine
DX: I88.9 Nonspecific lymphadenitis, unspecified (principal)
CPT/HCPCS: 76536

== ENCOUNTER → 2024-06-30 | Outpatient (CLI) | payer BC ==
--- NOTE | 2024-06-30 10:38 | CT ---
EXAMINATION TYPE: CT soft tissue neck wo con DATE OF EXAM: 06/30/2024 HISTORY: lymphadenitis, fluid in ears more on left, syncope episodes COMPARISON: None CT DLP: 282.80 mGycm. Automated Exposure Control for Dose Reduction was Utilized. TECHNIQUE: CT scan of the neck is is performed with noncontrast technique FINDINGS: Lung apices are clear. Previous breast surgery incidentally noted. Mild atherosclerotic change aorta. Artifact limits assessment of the thyroid. Grossly no sizable nodules seen. Tiny punctate hypodensiti es involving the thyroid could be artifactual or related to subcentimeter nodules. Oropharynx and nasopharynx are symmetric. The parotid has a normal appearance. Asymmetric prominence of the right submandibular gland. There is scattered adenopathy throughout the soft tissue compartments of the neck bilaterally measuri ng up to 1 cm in short axis. Within the posterior nasopharynx there is a fluid-filled structure measuring 6 mm likely related to T hornwaldt cyst. Mild hypertrophic and degenerative changes spine. Severe bilateral mastoiditis. Airway is patent. Vocal cords have a normal appearance. IMPRESSION: 1. Severe bilateral mastoiditis. 2. Nonspecific borderline lymphadenopathy bilaterally. 3. Asymmetric prominence of the right submandibular gland recommend correlation with ultrasound. 4. Fluid density within the posterior nasopharynx measuring 6 mm most likely in the basis of a Thornw aldt cyst. [facility], , 06/30/2024 10:36 AM
--- NOTE | 2024-06-30 11:01 | CT ---
EXAMINATION TYPE: CT iac wo/w con DATE OF EXAM: 06/30/2024 COMPARISON: HISTORY: fluid in ears more on left, syncope episodes CT DLP: 300 mGycm Automated exposure control for dose reduction was used. CONTRAST: CT scan of the IACs is performed without and with IV Contrast, patient injected with 100 mL of Isovue 370. FINDINGS: The external auditory canals are patent bilaterally. There is complete opacification of the mastoid air cells compatible severe mastoiditis. The right middle ear has a normal appearance. No significant abnormal soft tissue. There is no scutal erosion. There is abnormal soft tissue within the left middle ear which could be related to middle ear effusio n, or granulation tissue. No scutal erosion. Cholesteatoma not excluded but felt less likely correlat e clinically. Mild changes of chronic sinusitis. Nasal septal deviation. Orbits are symmetric. The posterior nasopharynx there is a 7 mm fluid attenuating lesion. The cochlea and the semicircular canals are symmetric and unremarkable. Vestibular aqueduct and inte rnal carotid canal appear unremarkable. Temporomandibular joints are maintained bilaterally. IMPRESSION: 1. Severe bilateral mastoiditis. 2. Abnormal soft tissue attenuation within the left middle ear. Differential diagnosis includes middl e ear effusion, granulation tissue or middle ear infection. No scutal erosion. Cholesteatoma not excl uded but felt less likely correlate clinically. 3. Within the posterior nasopharynx on the left there is a 7 mm low density lesion. 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 Correlate clinically to exclude other etiologies including mucosal lesion. [facility], , 06/30/2024 10:59 AM
== END | disposition home or self-care (01) ==
LOC: RADCTMAIN 08:36
PROVIDERS: ATTEND Family Medicine
CPT/HCPCS: 70482; 70490

== ENCOUNTER 2024-12-07 09:41 | Day surgery (SDC) | payer OTHER ==
[2024-12-06 09:44] VITALS: BMI 21.9
[2024-12-07 10:14] VITALS: TEMP 97.4
[2024-12-07] MEDS: LACTATED RINGERS 1,000 ML IV SCH (10:36)
[2024-12-07] MEDS: IV FLUID CONTINUATION 1,000 ML IV ONE (10:39)
[2024-12-07] MEDS ORDERED: PROPOFOL 10 MG/ML 20 ML VIAL IV ONE (10:49)
[2024-12-07] MEDS ORDERED: LIDOCAINE 1% INJ 10MG/ML (20 ML MDV) ONE (10:49)
--- NOTE | 2024-12-07 10:58 | P.PCN ---
Date of Procedure: 12/07/24 Procedure(s) Performed: BRIEF HISTORY: Patient is a 51-year-old, pleasant, white female scheduled for an upper endoscopy as a part evaluation of GERD and intermittent dysphagia to solid for the last 2 months duration.. PROCEDURE PERFORMED: Esophagogastroduodenoscopy with biopsy and dilation. PREOPERATIVE DIAGNOSIS: GERD intermittent dysphagia to solids. IV sedation per anesthesia. PROCEDURE: After informed consent was obtained, the patient was brought into the endoscopy unit. IV sedation was administered by Anesthesia under continuous monitoring. Initially the Olympus GIF-140 video endoscope was inserted into the mouth. Esophagus intubated without any difficulty. It was gradually advanced in to the stomach and duodenum and carefully examined. The bulb and the second part of the duodenum appeared normal. The scope at this time was withdrawn to the stomach, adequately insufflated with air, and upon careful examination, mucosa of the antrum, body, cardia and the fundus appeared normal. The scope was then withdrawn into the esophagus. Small hiatal hernia noted. There was a widely patent distal esophageal Schatzki's ring identified just proximal to the GE junction that was dilated using 20 mm TTS balloon for 60 seconds. The GE junction was located at 39 cm from the incisors. The esophagus appeared normal. There were no erosions or ulcerations seen, biopsies were done from the distal esophagus and the patient tolerated the procedure well. IMPRESSION: 1. Widely patent distal esophageal Schatzki's ring status post balloon dilation using 20 mm TTS balloon. 2. Small hiatal hernia RECOMMENDATIONS: The findings of this examination were discussed with the patient as well as her family.. She was advised to follow-up with the biopsy results. Continue with Protonix 40 mg twice daily and follow antireflux measures.
[2024-12-07 11:09] VITALS: RESP 16
[2024-12-07 11:19] VITALS: BP 131/78; PULSE 78
== END 2024-12-07 11:40 | disposition home or self-care (01) ==
LOC: ORWHC2ENDO 09:41
PROVIDERS: ATTEND Internal Medicine Gastroenterology
DX: K22.2 Esophageal obstruction (principal); K44.9 Diaphragmatic hernia without obstruction or gangrene; K21.00 Gastro-esophageal reflux disease with esophagitis, without bleeding
CPT/HCPCS: 88305; 43239; 43249; J2003; J2704; C1726

== ENCOUNTER → 2024-12-20 | Outpatient (CLI) | payer OTHER ==
--- NOTE | 2024-12-20 11:15 | MM ---
Reason for Exam: Additional evaluation requested from prior study. Last mammogram was performed 1 year(s) and 3 month(s) ago. Patient History: Menarche at age 12. First Full-Term at age 20. Postmenopausal. Patient used Hormonal Contraceptives for 5 years. 2018, Bilateral Implants. Risk Values: Aretha 5 year model risk: 0.9%. NCI Lifetime model risk: 6.8%. Prior Study Comparison: 03/02/2019 Bilateral Diagnostic Mammogram, [facility]. 10/05/2023 Bilateral MG 3D screen mammo imp/cad., [facility]. 10/08/2023 Right MG 3D work up w/cad RT, [facility]. 10/08/2023 Right US breast workup limited RT, [facility]. Tissue Density: The breasts are heterogeneously dense, which may obscure small masses. Findings: Bilateral breast implants are redemonstrated. No suspicious new mass or worrisome group of microcalcification in either breast. Overall Assessment: Benign, BI-RAD 2 Management: Screening Mammogram of both breasts in 1 year. . Results were given to the patient verbally at the time of exam. Patient should continue monthly self-breast exams. A clinical breast exam by your physician is recommended on an annual basis. This exam should not preclude additional follow-up of suspicious palpable abnormalities. Note on Aretha scores and lifetime risk: 1. A Aretha score greater than 3% is considered moderate risk. If this is the case, consider specialist referral to assess eligibility for a risk reducing agent. 2. If overall lifetime risk for the development of breast cancer is 20% or higher, the patient may qualify for future screening with alternating mammogram and breast MRI. [facility], , 12/20/2024 11:12 AM. Electronically signed and approved by: Anand Haines M.D.
== END | disposition home or self-care (01) ==
LOC: RADMAMWWP 10:36
PROVIDERS: ATTEND Family Medicine
DX: R92.8 Other abnormal and inconclusive findings on diagnostic imaging of breast (principal); R92.333 Mammographic heterogeneous density, bilateral breasts; Z98.82 Breast implant status; Z78.0 Asymptomatic menopausal state; Z92.0 Personal history of contraception
CPT/HCPCS: 77062; 77066